=== PATIENT | male | born 2000 | race Caucasian/White ===

== ENCOUNTER 2019-10-03 17:34 | Emergency (ER) | payer OTHER ==
[~2019-10-03] VITALS: Ht 180.3 cm; Wt 100.0 kg
[2019-10-03 17:44] VITALS: BP 136/89
--- NOTE | 2019-10-03 18:16 | REP ---
Clinical: Dyspnea . Comparison: None . Findings: The mediastinum and cardiac silhouette are stable and within normal limits for portable technique. The lung serrano are clear without acute consolidation, effusion, or pneumothorax. Skeletal structures are intact. Impression: No acute cardiopulmonary process appreciated. Electronically Signed by Manuel Saucedo MD 10/03/2019 06:08 P
== END 2019-10-03 18:29 | disposition home or self-care (01) ==
LOC: M ED 17:34
DX: J06.9 Acute upper respiratory infection, unspecified (principal)

== ENCOUNTER 2019-10-29 16:52 | Emergency (ER) | payer OTHER ==
[~2019-10-29] VITALS: Ht 182.9 cm; Wt 104.8 kg
[2019-10-29] MEDS ORDERED: BOOSTRIX/ADACEL VACCINE (DIPHTH/PERTUSS/ACELL/TETANUS) 0.5ML SYR IM ONE (17:15)
[2019-10-29] MEDS ORDERED: AUGMENTIN 875 MG TAB PO ONE (17:15)
[2019-10-29] MEDS ORDERED: AUGM875T28 PO (17:43)
[2019-10-29 17:47] VITALS: BP 150/64
== END 2019-10-29 17:54 | disposition home or self-care (01) ==
LOC: M ED 16:52
DX: S50.872A Other superficial bite of left forearm, initial encounter (principal); W54.0XXA Bitten by dog, initial encounter; Y92.096 Garden or yard of other non-institutional residence as the place of occurrence of the external cause; Y93.K9 Activity, other involving animal care; Y99.8 Other external cause status; Z23 Encounter for immunization

== ENCOUNTER → 2020-02-19 | Emergency (ER) | payer OTHER ==
[~2020-02-19] MED LIST: AUGM875T28 PO
--- NOTE | 2020-03-17 11:18 | ECGEPIP ---
[facility] - ED Test Date: 2020-02-19 Pat Name: TIFFANIE ROBBINS Department: Room: - Gender: Male Mechanical Technologist: la nena : 2000 Requested By: Francesco Rascon Order Number: [id number] Reading MD: Leah Saul Measurements Intervals [place] Rate: 69 P: -51 RI: 140 QRS: 61 QRSD: 104 T: -3 QT: 386 QTc: 415 Interpretive Statements ECTOPIC ATRIAL RHYTHM ABNORMAL QRS-T ANGLE ABNORMAL ECG WAVE SEE SCANNED DOWNTIME REPORT
== END | disposition home or self-care (01) ==
LOC: M ED 19:12
DX: I49.9 Cardiac arrhythmia, unspecified (principal)